=== PATIENT | female | born 1955 | race Caucasian/White ===

== ENCOUNTER → 2016-07-03 | Outpatient (CLI) | payer OTHER ==
[~2016-07-03] MED LIST: CALAN PO; CARISOPRODOL; COZAAR PO; FLEXERIL PO; GLUCOPHAGE500 MG PO; HYDROCODON-ACE1 EAC1 PO; HYDROCODON-ACE1 EAC7 PO; IBUPROFEN200 M2 PO; LOVASTAT20 PO; LOW DOSE ASPIRI81 M1 PO; PENICILLIN; PERCOCET 5-3251 EACH PO; PROZAC 20 MG20 MG PO; SPIRONOLACTONE50 MG PO; SYNTHROID PO; ZYRTEC10 M2 PO; [UNRECOGNIZED DRUG - REMARK]
== END ==
LOC: RAD 13:55
DX: Z12.31 Encounter for screening mammogram for malignant neoplasm of breast (principal)

== ENCOUNTER → 2018-07-15 | Outpatient (CLI) | payer OTHER | LOC: RAD 15:03 | DX: Z12.31 Encounter for screening mammogram for malignant neoplasm of breast (principal) ==

== ENCOUNTER → 2019-08-25 | Outpatient (CLI) | payer OTHER | LOC: BC 09:07 | DX: Z12.31 Encounter for screening mammogram for malignant neoplasm of breast (principal) ==

== ENCOUNTER → 2020-09-06 | Outpatient (CLI) | payer OTHER | LOC: BC 12:48 | PROVIDERS: ATTEND Internal Medicine | DX: Z12.31 Encounter for screening mammogram for malignant neoplasm of breast (principal) ==

== ENCOUNTER → 2020-10-16 | Outpatient (CLI) | payer OTHER | LOC: NUC 13:08 | PROVIDERS: ATTEND Internal Medicine | DX: M85.88 Other specified disorders of bone density and structure, other site (principal); E28.39 Other primary ovarian failure ==